=== PATIENT | female | born 1950 | race Two or more races ===

== ENCOUNTER 2024-09-11 03:44 | Emergency (ER) | payer OTHER ==
[~2024-09-11] VITALS: Ht 160 cm; Wt 61.2 kg
[2024-09-11] MEDS ORDERED: OMEPRAZOLE40 MG PO (04:14)
[2024-09-11] MEDS ORDERED: LOSARTAN POTAS100 MG PO (04:14)
[2024-09-11] MEDS ORDERED: SIMVASTATIN20 MG PO (04:14)
[2024-09-11] MEDS ORDERED: 0.9 % SODIUM CHLORIDE 500 ML IV STA (04:21)
[2024-09-11 04:51] LABS: HEMATOCRIT 42.8 % (36.0-45.00); HEMOGLOBIN 14.8 g/dL (12.0-15.00); MEAN CELL VOLUME 86.5 fL (80.00-100.00); MEAN CORPUSCULAR HGB CONC 34.7 g/dl (32.0-36.0); PLATELET COUNT 227 K/uL (150-450); RED BLOOD COUNT 4.95 M/uL (4.00-6.00); RED CELL DISTRIBUTION WIDTH 14.4 % (11.5-14.5)
[2024-09-11 04:59] LABS: CALCIUM 9.3 mg/dL (8.5-10.1); CREATININE SERUM 0.86 mg/dL (0.55-1.02); GFR 64.5; POTASSIUM 3.76 mEq/L (3.5-5.1)
[2024-09-11] MEDS ORDERED: ONDANSETRON HCL 2 MG/ML VIAL IV STA (07:37)
[2024-09-11] MEDS ORDERED: ONDANSETRON HCL 2 MG/ML VIAL ONE ×2 (07:41)
[2024-09-11] MEDS ORDERED: CIPROFLOXACIN IN 5 % DEXTROSE 400 MG/200 ML PIGGYBAG IV ONE ×2 (09:15→09:17)
[2024-09-11] MEDS ORDERED: METRONIDAZOLE/SODIUM CHLORIDE 500 MG/100 ML PIGGYBACK IV ONE ×2 (09:15→09:17)
== END 2024-09-11 11:58 | disposition home or self-care (01) ==
LOC: ER 03:46
DX: R19.7 Diarrhea, unspecified (principal)
CPT/HCPCS: 36415; 96365; 96366; 99282; J0744; J2405; J3490; J7042